=== PATIENT | male | born 1985 | race Caucasian/White ===

== ENCOUNTER 2018-08-31 17:16 | Emergency (ER) | payer OTHER, SELFPAY ==
[2018-08-31 17:29] VITALS: BP 144/92; PULSE 96; RESP 20; TEMP 39.1; O2SAT 100
[2018-08-31 17:40] VITALS: TEMP 39.1
[2018-08-31] MEDS: IBUPROFEN 400 MG TABLET PO (17:40)
[2018-08-31 19:09] VITALS: BP 138/83; PULSE 83; RESP 17; O2SAT 97
[2018-08-31 19:36] VITALS: TEMP 38
[2018-08-31 20:00] VITALS: BP 145/83; PULSE 95; RESP 18; O2SAT 98
[2018-08-31] MEDS: KETOROLAC 60 MG/2 ML VIAL IM (22:41)
[2018-08-31 22:57] VITALS: BP 142/76; PULSE 95; RESP 17; TEMP 37.3; O2SAT 99
[2018-08-31 23:09] LABS: Influenza A and B by PCR Rapid Negative (Negative)
--- NOTE | 2018-09-01 06:25 | ED_ITS ---
HPI - URI/Sore Throat General Chief Complaint: Upper Respiratory Symptoms Stated Complaint: fever and chills all night and a sore throat Time Seen by Provider: 08/31/18 18:54 Source: patient Mode of arrival: ambulatory Limitations: no limitations History of Present Illness HPI Narrative: 33-year-old male nonsmoker fully immunized presents with chief complaint of sore throat, fever and chills for the past 24 hours. He has had a bit of a runny nose but denies any chest pain or cough. He has had no nausea, vomiting or diarrhea. He denies any rash or exposure to ill persons. MD Complaint: fever and sore throat Onset (ago): hour(s) Duration: constant Severity: moderate Relieving factors: nothing Exacerbating factors: nothing Description of mucous: clear Able to tolerate fluids by mouth: Yes Associated symptoms: fever and chills Treatments prior to arrival: none Related Data Allergies Allergy/AdvReac Type Severity Reaction Status Date / Time cephalexin Allergy Intermediate Rash Verified 06/03/18 18:38 Review of Systems Constitutional Denies chills, Reports fever(s), Denies lethargy and Denies weakness Eyes Denies change in vision, Denies eye discharge, Denies irritation and Denies loss of vision ENT Ears, Nose, Mouth, and Throat: Denies change in voice, Denies neck pain and Reports sore throat Cardiovascular Denies chest pain, Denies irregular heart rhythm, Denies lightheadedness, Denies palpitations, Denies dyspnea, Denies dyspnea on exertion and Denies orthopnea Respiratory Denies cough, Denies dyspnea, Denies dyspnea on exertion and Denies wheezing Gastrointestinal Gastrointestinal: Denies abdominal pain, Denies change in bowel habits, Denies diarrhea, Denies nausea and Denies vomiting Genitourinary Denies hematuria, Denies flank pain, Denies urinary incontinence and Denies urinary urgency Musculoskeletal Denies neck pain Integumentary/Breasts Denies pruritus, Denies erythema, Denies rash and Denies wounds Neurologic Denies confusion, Denies loss of vision and Denies weakness Psychiatric Denies anxiety, Denies confusion, Denies depression, Denies homicidal ideation and Denies suicidal ideation Endocrine Denies palpitations Hematologic/Lymphatic Denies easy bruising Allergic/Immunologic Denies wheezing [facility] Social History Smoking Status: Current some day smoker Social History (Reviewed 09/01/18 @ 06:25 by GIGI Holguin Smoking Status: Current some day smoker Exam Narrative Exam Narrative: GENERAL: This is a well-nourished, well-developed patient, in mild distress. HEAD: Atraumatic. Normocephalic. No temporal or scalp tenderness. EYES: Pupils equal round and reactive. Extraocular motions intact. No scleral icterus. No injection or drainage. ENT: Clear postnasal drip with mild erythema Nose without bleeding, purulent drainage or septal hematoma. Throat without erythema, tonsillar hypertrophy or exudate. Uvula midline. Airway patent. NECK: Trachea midline. No JVD or lymphadenopathy. Supple, nontender, no meningeal signs. CARDIOVASCULAR: Regular rate and rhythm without murmurs, gallops, or rubs. RESPIRATORY: Clear to auscultation. Breath sounds equal bilaterally. No wheezes, rales, or rhonchi. GASTROINTESTINAL: Abdomen soft, non-tender, nondistended. No hepato- splenomegaly, or palpable masses. No guarding. EXTREMITIES: No clubbing, cyanosis, or edema. No joint tenderness, effusion, or edema noted. BACK: Nontender without deformity or crepitance. No flank tenderness. NEURO: AOx3. SKIN: No rash or erythema. Initial Vital Signs Initial Vital Signs: Vital Signs Temperature 102.4 F H 08/31/18 17:29 Pulse Rate 96 H 08/31/18 17:29 Respiratory Rate 20 08/31/18 17:29 Blood Pressure 144/92 H 08/31/18 17:29 Pulse Oximetry 100 08/31/18 17:29 Course Orders Ordered: ED Orders 08/31/18 22:37 Influenza A and B by PCR Rapid Stat Discontinued Medications Ibuprofen (Advil) 400 mg PO NOW ONE Stop: 08/31/18 17:38 Last Admin: 08/31/18 17:40 Dose: 400 mg Ketorolac Tromethamine (Toradol) 60 mg IM NOW ONE Stop: 08/31/18 22:33 Last Admin: 08/31/18 22:41 Dose: 60 mg Vital Signs - 8 hr 08/31/18 22:57 Temperature 99.2 F Pulse Rate 95 H Respiratory Rate 17 Blood Pressure [Left Arm] 142/76 H Pulse Oximetry 99 MDM - URI/Sore Throat Lab Data Lab Results 08/31/18 Range/Units 22:37 Influenza A & B (PCR) Negative (Negative) Point of Care Testing Rapid Strep A Negative Discharge Plan Departure Patient Disposition: Home Clinical Impression: Viral infection Upper respiratory infection Qualifiers: URI type: unspecified viral URI Qualified Code(s): J06.9 - Acute upper respiratory infection, unspecified Discharge Date/Time: 08/31/18 23:17 Interventions: ED Discharge Assessment Last Done: 08/31/18 23:15 Instructions: DI for Viral Upper Respiratory Infection -- Adult Activity Restrictions/Additional Instructions: *You have been diagnosed with [acute viral pharyngitis and upper respiratory infection] *What to do: *Take medications as directed: Tylenol or Motrin for pain *Follow up with your primary care provider in 2-3 days, call for an appointment. Let them know you were seen in the Emergency Department and that we ask that you be seen in follow up *Return to ER if you should have any new, worsening or concerning symptoms
== END 2018-08-31 23:17 | disposition home or self-care (01) ==
PROVIDERS: Emergency Provider Emergency Medicine
DX: J06.9 Acute upper respiratory infection, unspecified (principal)
CPT/HCPCS: 87400; 87880; 96372; 99283; J1885

== ENCOUNTER → 2022-10-22 15:09 | Outpatient (CLI) | payer OTHER, SELFPAY ==
--- NOTE | 2022-10-22 | DI.NM.S_ITS ---
PROCEDURE: NM EXERCISE TREADMILL NON NUC COMPARISON: None. INDICATIONS: CHEST PAIN FINDINGS: The patient exercised for 13 minutes and 1 second reaching 104% of maximum predicted heart rate. Appropriate BP response to exercise. 14.8 METs, ADITHYA 0%). No angina, no ectopy, and no ST changes during exercise or recovery. IMPRESSION: Low risk, normal treadmill ECG only stress test with average exercise tolerance (ADITHYA 0%). Dictated by: Isidro Ocampo MD on 10/22/2022 at 16:59 Approved by: Isidro Ocampo MD on 10/22/2022 at 17:01
== END ==
PROVIDERS: Referring Provider Internal Medicine Cardiovascular Disease; Visit Provider Internal Medicine Cardiovascular Disease
DX: R07.89 Other chest pain (principal)
CPT/HCPCS: 36415; 85651; 86140; 93017

== ENCOUNTER → 2022-10-22 15:12 | Outpatient (CLI) | payer OTHER, SELFPAY ==
[2022-10-22 15:56] LABS: C-Reactive Protein Quant < 0.5 mg/dL (<1.0)
[2022-10-22 16:01] LABS: Erythrocyte Sedimentation Rate 3 MM/HR (0-15)
== END ==
PROVIDERS: Referring Provider Internal Medicine Cardiovascular Disease; Visit Provider Internal Medicine Cardiovascular Disease
DX: R07.9 Chest pain, unspecified (principal); R07.89 Other chest pain
CPT/HCPCS: 36415; 85651; 86140

== ENCOUNTER → 2024-02-09 19:44 | Outpatient (CLI) | payer OTHER, SELFPAY ==
--- NOTE | 2024-02-09 19:46 | DI.MRI.S_ITS ---
PROCEDURE: MR KNEE RT WO CON INDICATIONS: PAIN IN RIGHT KNEE TECHNIQUE: Noncontrast sagittal PD fast spin echo and T2 fast spin echo with fat saturation, sagittal 3-D FLASH with fat saturation; coronal T1 spin echo and PD fast spin echo with fat saturation, and axial PD fast spin echo with fat saturation through the knee. COMPARISON: None. FINDINGS: Image quality: Excellent. Bones: Mild marrow edema is present in the patellar body without corresponding T1 hypointense fracture line (7/14). The bone marrow signal is otherwise normal. There is no acute fracture or dislocation. Joints: There is no significant knee joint effusion. There is no significant knee osteoarthritis. Thomas's cyst: None. Menisci: The medial meniscus is normal. The lateral meniscus is normal. The posterior root attachments are normal. Cruciate ligaments: The anterior cruciate ligament is normal. The posterior cruciate ligament is normal. Collateral ligaments: The medial collateral ligament complex is normal. The lateral collateral ligament complex is normal. Popliteus Muscle/Tendon: The popliteus muscle and tendon are normal. Extensor mechanism: The quadriceps tendon is thickened with intermediate signal at the patellar insertion (7/14). The patellar tendon is normal. The medial and lateral patellar retinacular attachments are normal. Articular cartilage: Partial-thickness chondral fissuring is present at the median patellar facet (5/10) Other: There is a small amount of T1 hyperintense (compared to skeletal muscle), T2 hyperintense fluid in the prepatellar bursa (7/10), surrounded by a adjacent subcutaneous edema (5/21). IMPRESSION: 1. Patellar body contusion without fracture. 2. Likely hemorrhagic prepatellar bursitis with adjacent subcutaneous edema/contusion. 3. Moderate quadriceps tendinosis. No focal tear. Dictated by: Haim Eagle M.D. on 02/10/2024 at 9:24 Approved by: Haim Eagle M.D. on 02/10/2024 at 9:32
== END ==
DX: S80.01XA Contusion of right knee, initial encounter (principal); M25.561 Pain in right knee
CPT/HCPCS: 73721

== ENCOUNTER → 2024-06-26 16:48 | Outpatient (CLI) | payer OTHER, SELFPAY ==
--- NOTE | 2024-06-26 16:49 | DI.MRI.S_ITS ---
PROCEDURE: MR ELBOW RT WO CON INDICATIONS: ENTHESOPATHY - right TECHNIQUE: Noncontrast coronal proton density fast spin echo and T2 fast spin echo with fat saturation, axial and sagittal T1 spin echo and T2 fast spin echo with fat saturation through the elbow. COMPARISON: None. FINDINGS: Image quality: Excellent. Lateral structures: The lateral ulnar collateral ligament and radial collateral ligament both appear intact. The overlying common extensor tendon also appears normal. Medial structures: The ulnar collateral ligament appears intact. The overlying common flexor tendon appears normal. The ulnar nerve appears normal in size and signal within the cubital tunnel. Anterior structures: The biceps and brachialis tendons both appear intact as they insert onto the proximal radius and ulna, respectively. No bicipitoradial bursal fluid. The median and radial neurovascular bundles appear normal; no focal muscle atrophy to suggest nerve impingement. Posterior structures: Tendinosis and low-grade partial-thickness tear involving distal triceps tendon at its proximal olecranon insertion is seen with adjacent soft tissue edema. No full-thickness tendon rupture. No olecranon bursal fluid. Bone and cartilage: There is marrow edema involving proximal olecranon near triceps tendon insertion site. Small enthesophyte formation involving proximal olecranon at triceps tendon insertion is also noted. No other area of abnormal marrow signal. No osteochondral injuries. Small joint effusion, no loose bodies. IMPRESSION: 1. Low to moderate grade tendinosis and partial-thickness tear involving distal triceps tendon at its proximal olecranon insertion. Enthesophyte formation involving proximal olecranon at triceps tendon insertion with extensive marrow edema involving proximal olecranon. No discrete fracture line. No full-thickness tendon rupture. 2. No other area of abnormal marrow signal. Small elbow joint effusion, no loose bodies. 3. Rest of the elbow tendons and ligaments are intact. Dictated by: Nahum Cheung M.D. on 06/28/2024 at 11:44 Approved by: Nahum Cheung M.D. on 06/28/2024 at 11:47
== END ==
PROVIDERS: Referring Provider Student in an Organized Health Care Education/Training Program; Visit Provider Student in an Organized Health Care Education/Training Program
DX: S46.311A Strain of muscle, fascia and tendon of triceps, right arm, initial encounter (principal); M25.421 Effusion, right elbow; M77.9 Enthesopathy, unspecified
CPT/HCPCS: 73221